=== PATIENT | male | born 1985 | race Caucasian/White ===

== ENCOUNTER 2017-05-04 20:45 | Emergency (ER) | payer SELFPAY ==
[~2017-05-04] VITALS: Ht 188 cm; Wt 59.0 kg
[~2017-05-04 20:45] MED LIST: BACTRIM DS TABL1 TA1 PO; CLONIDINE HCL0.1 MG PO; EYE GTT; FLAGYL PO; KEFLEX PO; KLONOPIN1 MG PO; PEN-VEE K PO; ULTRAM PO; VICODIN 5/500 T1 TAB PO
[2017-05-04] MEDS ORDERED: NO MEDICATIONS (20:59)
== END 2017-05-04 21:40 | disposition home or self-care (01) ==
LOC: SED 20:45
DX: F19.10 Other psychoactive substance abuse, uncomplicated (principal)
CPT/HCPCS: 99283